=== PATIENT | female | born 1985 | race Hispanic/Latino ===

== ENCOUNTER 2020-03-07 12:30 | Inpatient (IN) | payer OTHER ==
[~2020-03-07] VITALS: Ht 160 cm; Wt 69.9 kg
[2020-03-11] MEDS ORDERED: CEFAZOLIN SODIUM 1 GM VIAL IVP PRN (17:30)
[2020-03-11] MEDS ORDERED: METOCLOPRAMIDE 10 MG/2 ML VIAL ONE (17:52)
[2020-03-11] MEDS ORDERED: OXYTOCIN-LR 20 UNITS/1000 ML 2,000 ML IV ONE (17:53)
[2020-03-11] MEDS ORDERED: OXYTOCIN 10 UNIT/1ML 10ML VIAL ONE (18:01)
[2020-03-11] MEDS ORDERED: ONDANSETRON HCL 4 MG/2 ML VIAL ONE (18:01)
[2020-03-11] MEDS ORDERED: FENTANYL CITRATE PF 50 MCG/1 ML 2ML VIAL ONE (18:02)
[2020-03-11] MEDS ORDERED: DURAMORPH PF1 MG/ML 10ML AMP IV ONE (18:02)
[2020-03-11] MEDS ORDERED: CEFAZOLIN SODIUM 1 GM VIAL IVP ONE (18:05)
[2020-03-11] MEDS ORDERED: TERBUTALINE SULFATE VIAL 1MG/ML SQ SCH ×2 (20:15→21:20)
[2020-03-11] MEDS ORDERED: LACTATED RINGERS 1000ML 1,000 ML IV SCH (20:15)
[2020-03-11] MEDS ORDERED: DEXTROSE 5 %-0.45 % NACL 1,000 ML IV PRN (20:15)
[2020-03-11] MEDS ORDERED: PROMETHAZINE HCL 25 MG/ML 1ML AMPULE IM PRN (20:15)
[2020-03-11] MEDS ORDERED: MEPERIDINE-PF 75 MG/ML SYG IM PRN (20:15)
[2020-03-11] MEDS ORDERED: OXYTOCIN-LR 20 UNITS/1000 ML 1,000 ML IV PRN (20:15)
[2020-03-11] MEDS ORDERED: SODIUM CHLORIDE 0.9% 10 ML VIAL IVP PRN (20:15)
[2020-03-11 21:15] VITALS: BP_SYST 113; BP_SYST 120; BP_DIAS 68; BP_DIAS 78; PULSE 72; RESP 20; TEMP 97.9
--- NOTE | 2020-03-11 21:30 | NUR ---
PT. IS VERY ANXIOUS ABOUT THE COVID VIRUS. SHE DOENS' T WANT TO BE CONTRACTED OF IT. SHE HAS CONCERNED OF WHO WILL TAKE CARE OF HER IN THE MORNING WHETHER THE NURSE IS TAKING CARE OF ANOTHER PT. ASIDE FROM HER. EXPLAINED TO THE PT AND THAT SHE IS SAFE BECAUSE SHE'S THE ONLY PT. IN THE FLOOR AT THIS TIME. THAT [facility] DOESN'T HAVE COVID POSITIVE PT.
[2020-03-11] MEDS ORDERED: LANOLIN 30GM OINTMENT TP PRN (21:45)
[2020-03-11] MEDS ORDERED: IBUPROFEN 600 MG TABLET PO PRN (21:45)
[2020-03-11] MEDS ORDERED: ACETAMINOPHEN EXTRA STRENGTH 500 MG TABLET PO PRN (21:45)
[2020-03-11] MEDS ORDERED: BISACODYL 10 MG SUPP.RECT RC PRN (21:45)
[2020-03-11] MEDS ORDERED: MEASLES/MUMPS/RUBELLA VACCINE, LIVE 0.5 ML/VIAL SQ SCH (21:45)
[2020-03-11] MEDS ORDERED: DIPH,PERTUSS(ACELL),TET VAC/PF 0.5 ML VIAL IM SCH (21:45)
[2020-03-11] MEDS ORDERED: HYDROCODONE/ACETAMINOPHEN 5/325 MG TAB PO PRN (21:45)
[2020-03-11] MEDS ORDERED: ACETAMINOPHEN-CODEINE 300/30MG TAB PO PRN (21:45)
--- NOTE | 2020-03-11 22:00 | NUR ---
PT UNDERSTOOD HOW IMPORTANCE THE USE OF INCENTIVE SPIROMETER AND SHE WAS ABLE TO HAVE AN VOLUME OF INTAKE AIR OF 1500 CC. PT. TOLERATED THE PROCEDURE WELL.
[2020-03-12] VITALS: BP 116/78; PULSE 60; RESP 18; TEMP 98.4
--- NOTE | 2020-03-12 01:10 | NUR ---
PT. DENIES PAIN. FUNDUS FIRM AT THE LEVEL OF THE UMBILICUS. LOCHIA RUBRA SMALL.
[2020-03-12 04:00] VITALS: BP 113/71; PULSE 56; RESP 20; TEMP 98.2
--- NOTE | 2020-03-12 04:15 | NUR ---
PT. IS AFEBRILE. BECKY CARE. SMALL LOCHIA RUBRA NOTED. PT. DENIES PAIN.
--- NOTE | 2020-03-12 04:50 | NUR ---
REPORT GIVEN TO GERMAN PADILLA; RN
--- NOTE | 2020-03-12 05:15 | NUR ---
Report received from Dann Cardenas RN; Patient awake lying in bed with IV fluid of D5 1/2 NS regulated at 150 ml/hour, Hu Catheter patent Fundus firm at the level of umbilicus with scant Lochia rubra. Plan of care discussed with patient verbalizes understanding.
--- NOTE | 2020-03-12 05:40 | NUR ---
Hu; Ev care done, abdominal binder applied to abdomen. Patient assisted to get up in bed able to stand up and walk at bedside. Hu Catheter patent taken out with clear yellow urine. Advice to call if needed, she verbalizes understanding.
--- NOTE | 2020-03-12 06:40 | NUR ---
Patient; Patient claimed , " I accidentally drop the medication on the floor can I have another one? Can I peel it myself ." Hydrocodone 2 tabs wasted witnessed by Stephenie Adler RN.
--- NOTE | 2020-03-12 07:03 | NUR ---
Activity; Patient sitting at bedside chair her baby claimed, " Can you wait till I finish . Hydrocodone medication endorsed to Iris Aparicio RN to be given to the patient.
--- NOTE | 2020-03-12 07:20 | NUR ---
PATIENT REFUSED; PATIENT REFUSED THE HYDROCODONE MEDICATION; PATIENT VERY ANXIOUS OF ACQUIRING THE COVID 19 INFECTION. SHE EXPRESSES HERSELF THAT SHE'S VERY CAUTIOUS TO THE PEOPLE AROUND HER, TAKING CARE OF HER. SHE WEARING HER OWN FACE MASK N95 AND FACE SHIELD. EVERYBODY ENTERING THE ROOM SHOULD WAIT TILL HER AND HER HAD THEIR FACE MASK AND THEIR JANG ON. ALON ALBA RN IS AWARE OF IT.
[2020-03-12 07:31] VITALS: BP 107/75; PULSE 79; RESP 18; TEMP 97.7
[2020-03-12] MEDS: SIMETHICONE 80 MG TAB.CHEW PO PRN ×2 (07:32→12:54)
[2020-03-12] MEDS ORDERED: DOCUSATE SODIUM 100 MG CAP PO SCH (09:00)
--- NOTE | 2020-03-12 12:00 | NUR ---
PT DESIRES FOR TRAFFIC TO BE LIMITED. PT IN STABLE CONDITION. V/S NOT TAKEN PER MD ORDERS. Addendum: 03/12/20 at 1420 by ALON ALBA RN RN Amended: Links added.
--- NOTE | 2020-03-12 13:00 | NUR ---
DISCHARGE TEACHING DISCHARGE TEACHING DONE OVER TELEPHONE PER PT REQUEST. PT STATED WANTED TO LIMIT TRAFFIC AND AMOUNT OF TIME STAFF IS IN THE ROOM. PT VERBALIZED UNDERSTANDING AND HAD NO QUESTIONS AT THIS TIME. Addendum: 03/12/20 at 1322 by ALON ALBA RN RN Amended: Links added.
--- NOTE | 2020-03-12 14:01 | NUR ---
HX of Anxiety and Depression related to current world situation Sw informed by nurse Iris, pt not wanting visitors in room. Pt extremely cautious related to fear of exposure to Covid for her and baby. Pt prefers to be called in room. Sw called pt's room and spoke to pt. This is third child for pt and her Luis Lockett [phone]. Couple has daughter 3 and sons 8 and NB Attila Masonkennyjosep. 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 works at [employer]. Couple has [employer] to help with children. Couple has basic items for NB including car seat and Dr Mata will follow baby after dc. Pt and children have been in quarantine since November and she plans to continue until covid issues under control. Pt states she has "excellent" support system in place for her and her family. Pt reports that she has used [facility] to get dx for anxiety related to Covid. pt states she feels that the depression is related to the anxiety. Pt is also seeing a virtual counselor [facility], to help her talk through feelings of fear and anxiety.Pt learning to cope on her own and feels it is getting better. Pt denies any thoughts of hurting herself or others, suicide attempts or inpt psych placement. Pt feels like she did have some post depression with her older son for a few days after delivery. Pt reports she cried a lot. Pt denied need for counseling resources, referrals or intervention needed at this time. pt states she will have support at home at de. Pt denies hx of abuse, substance abuse, CPS or legal issues.
--- NOTE | 2020-03-12 18:45 | NUR ---
DISCHARGE PT LEFT UNIT VIA WHEELCHAIR, WITH BABY IN ARMS, ACCOMPANIED BY SIGNIFICANT OTHER. DENIED PAIN AND HAD NO COMPLAINTS. BABY STRAPPED IN CAR SEAT. PT AND BABY TRANSPORTED BY PERSONAL VEHICLE.
== END 2020-03-12 18:45 | disposition home or self-care (01) | DRG 788 ==
LOC: LDH 03-11 17:05 → OBSVTOIN 03-11 17:05 → WSH 03-11 21:13
PROVIDERS: ADMIT Obstetrics & Gynecology; ATTEND Obstetrics & Gynecology
PROC: 3E0234Z Introduction of Serum, Toxoid and Vaccine into Muscle, Percutaneous Approach (ICD-10-PCS; 2020-03-11)
PROC: 3E0134Z Introduction of Serum, Toxoid and Vaccine into Subcutaneous Tissue, Percutaneous Approach (ICD-10-PCS; 2020-03-11)
PROC: 10D00Z1 Extraction of Products of Conception, Low, Open Approach (ICD-10-PCS; principal; 2020-03-11 18:00)
DX: O34.211 Maternal care for low transverse scar from previous cesarean delivery (principal); O99.62 Diseases of the digestive system complicating childbirth; K21.9 Gastro-esophageal reflux disease without esophagitis; N73.6 Female pelvic peritoneal adhesions (postinfective); Z20.828 Contact with and (suspected) exposure to other viral communicable diseases; Z3A.39 39 weeks gestation of pregnancy; Z37.0 Single live birth; Z23 Encounter for immunization; Z3A.38 38 weeks gestation of pregnancy